=== PATIENT | male | born 1960 | race Caucasian/White ===

== ENCOUNTER 2018-07-17 09:22 | Outpatient (CLI) | payer OTHER ==
--- NOTE | 2018-07-17 14:03 | MRI ---
MRI PELVIS (PROSTATE) WITH AND WITHOUT IV CONTRAST: Date: 07/17/18 HISTORY: Prostate cancer. Biopsy 12/25/17. PSA on 06/05/18 measured 8.35 (high). TECHNIQUE: Multiplanar, multisequence MRI of the pelvis was performed using the prostate protocol with and witho ut IV contrast. Review was also performed on an independent 3D workstation. FINDINGS: The prostate measures 5.5 x 3.5 x 5.0 cm with a volume of 50 mL. No focal abnormal area of diffusion restriction is seen in the peripheral zone. No lentiform area of abnormally decreased T2 signal is seen in the transitional zone. No abnormal focal arterial enhancing mass is seen. The prostate capsule is intact. The seminal vesicl es are intact. No lymphadenopathy seen in the pelvis. The pelvic side wall is normal. There is heterogeneity in the bone marrow signal on the T1-weighted images. No definite evidence of o sseous metastatic disease is seen. IMPRESSION: PI-RADS 2: Low (clinically significant prostate cancer is unlikely to be present). This exam was interpreted in consultation with Dr. Regulo Fabian, who concurs. POS: MATT
== END 2018-07-17 09:23 | disposition home or self-care (01) ==
LOC: TBSIIMAG 09:22
PROVIDERS: ATTEND Urology
DX: C61 Malignant neoplasm of prostate (principal)
CPT/HCPCS: 72197

== ENCOUNTER 2019-03-27 09:17 | Day surgery (SDC) | payer OTHER ==
[2019-03-26 12:49] VITALS: BMI 22.9
[2019-03-27] MEDS ORDERED: EPHEDRINE 25 MG/5 ML SYRINGE ONE (09:49)
[2019-03-27] MEDS ORDERED: Rocuronium Bromide 10 MG/ML (10ML VIAL) ONE (09:49)
[2019-03-27] MEDS ORDERED: Lidocaine 1% PF 5 ML VIAL ONE (09:49)
[2019-03-27] MEDS ORDERED: Ondansetron PF 4 MG/2 ML Vial ONE ×2 (09:49→10:30)
[2019-03-27] MEDS ORDERED: PROPOFOL 200 MG/20 ML VIAL ONE (09:49)
[2019-03-27] MEDS ORDERED: PHENYLEPHRINE-NS 100 MCG/ML 10 ML SYRINGE ONE (09:49)
[2019-03-27] MEDS ORDERED: Succinylcholine Chloride 20 MG/ML 10 ml SYRINGE FS ONE (09:49)
[2019-03-27] MEDS ORDERED: AFRIN NASAL MIST 15 ML BOT ONE ×2 (09:56→11:26)
[2019-03-27] MEDS ORDERED: Scopolamine 1.5 mg/72 hour Patch ONE (10:30)
[2019-03-27] MEDS ORDERED: Famotidine/PF 20 mg/2ml Vial ONE (10:30)
[2019-03-27] MEDS ORDERED: Bacitracin Zinc Ointment 30 gm TUBE ONE (11:26)
[2019-03-27] MEDS ORDERED: EPINEPHrine 1 MG/ML AMP ONE (11:26)
[2019-03-27] MEDS ORDERED: Lidocaine 1% w/Epinephrine 1:100K 20 ML VIAL ONE ×2 (11:26→12:04)
[2019-03-27] MEDS ORDERED: Fentanyl 100 MCG/2 ML VIAL ONE ×2 (11:28→11:33)
[2019-03-27] MEDS ORDERED: methylPREDNISolone Acetate 40 mg/ml Vial ONE (11:33)
[2019-03-27] MEDS ORDERED: HYDROcodone/Acetaminophen 5/325 mg Tablet ONE (13:51)
--- NOTE | 2019-03-27 17:03 | EKG ---
Test Reason : PREOP Blood Pressure : / mmHG Vent. Rate : 054 BPM Atrial Rate : 054 BPM P-R Int : 162 ms QRS Dur : 134 ms QT Int : 476 ms P-R-T Axes : 045 034 013 degrees QTc Int : 451 ms Sinus bradycardia Right bundle branch block Abnormal ECG Confirmed by MOUSTAPHA BELTRAN ([id number]) on 03/27/2019 5:03:28 PM Referred By: MELO Confirmed By:MOUSTAPHA BELTRAN
--- NOTE | 2019-04-06 11:04 | OP ---
DATE OF PROCEDURE: 03/27/2019 PREOPERATIVE DIAGNOSES: 1. Deviated septum. 2. Bilateral nasal valve collapse. 3. Obstructive inferior turbinate hypertrophy. 4. Chronic sinusitis. 5. Pansinusitis. 6. Nasal polyposis. POSTOPERATIVE DIAGNOSES: 1. Deviated septum. 2. Bilateral nasal valve collapse. 3. Obstructive inferior turbinate hypertrophy. 4. Chronic sinusitis. 5. Pansinusitis. 6. Nasal polyposis. PROCEDURES PERFORMED: 1. Septoplasty. 2. Bilateral bone nasal endoscopy with submucosal resection of inferior turbinates. 3. Bilateral nasal endoscopy with maxillary antrostomy with removal of tissue. 4. Bilateral nasal endoscopy with frontal sinusotomy. 5. Bilateral nasal endoscopy with total ethmoidectomy. 6. Bilateral nasal endoscopy with sphenoidotomy. 7. Bilateral nasal valve repair. DESCRIPTION OF PROCEDURE: SEPTOPLASTY: After local anesthesia was infiltrated into the submucoperichondrial plane, a standard Marston incision was made with a #15 blade down to the level of the septal cartilage. The caudal elevator was used to elevate the mucoperichondrium from the underlying cartilage. We then proceeded beyond the bony cartilaginous junction and elevated the bony periosteum as well. Great attention was paid to the spur to prevent rent formation in the septal flap. A transcartilaginous incision was then made, while preserving an adequate dorsal and caudal cartilaginous strut for tip support. The deformed cartilage was removed and disarticulated from the bony cartilaginous junction and maxillary crest. This was placed in saline and would later be crushed and returned to the mucoperichondrial envelope. We then elevated the contralateral periosteum from the bony cartilaginous region and removed the deformed portions of the bone and bony spurs. The cartilage was then crushed and placed back into the mucoperichondrial envelope and the mucosa was re-approximated with a quilting stitch composed of rapidly absorbent gut suture. The Marston incision was also closed with interrupted gut suture. At the completion of the case, Henderson splints were placed and suture secured to the caudal septum. BILATERAL BONE NASAL ENDOSCOPY WITH SUBMUCOSAL RESECTION OF INFERIOR TURBINATES: After consent was obtained, the patient was identified, brought to the operating room, and placed on the operating room table in the supine position. Consent was obtained, notifying the patient of the possibility of additional infections, bleeding, brain injury, and eye/orbital injury. The patient was placed on the operating room table, and general endotracheal anesthesia and intravenous access was obtained. The patient was then positioned, prepped and draped for endoscopic sinus surgery. Nasal preparation included trimming nasal vestibular hairs and spraying in topical Afrin. We then placed Afrin topical solution on nasal pledgets and strategically located them intranasally. The perinasal mucosa was injected with 1% lidocaine with 1:100,000 epinephrine in the submucoperichondrial plane of the septum, lateral nasal wall, and anterior to the uncinate. The patient was then prepped and draped in a sterile fashion and positioned for endoscopic sinus surgery. With the 0-degree endoscope, the patient underwent systematic nasal endoscopy. There were no suspicious internasal masses or lesions identified. We then focused our attention to the osteomeatal complex region under the middle turbinate. The inferior turbinates were visualized with a 0 degree endoscope and outfractured with a Janay elevator. The inferior medial aspect was cauterized with the electrocautery. Hemostasis was obtained . After adequate airway was established, we turned our attention to the contralateral side and used a similar procedure. Again, a [employer] elevator was used to outfracture inferior turbinates under endoscopic visualization. With a suction cautery, the free inferior medial aspect was cauterized under direct visualization along the length of the inferior turbinate. At this point, we then turned our attention to the contralateral side and proceeded with endoscopic sinus surgery. At the completion of the case, Rice keel splints were placed in the ethmoid cavities after the ethmoidectomy. There were no complications. The patient tolerated the procedure well and was discharged to the recovery room in stable condition prior to return to the preoperative day stay with ultimate discharge home. Prescriptions for pain medication and antibiotics were provided. The patient received intramuscular Depo-Medrol during the case. BILATERAL NASAL ENDOSCOPY WITH MAXILLARY ANTROSTOMY WITH REMOVAL OF TISSUE: The uncinate was then identified and the extent of the uncinate was appreciated by out-fracturing the uncinate with the ball-tip probe. We then used the sickle blade to disarticulate the uncinate from the lateral nasal wall. This was then removed with straight biting and upbiting punches with the remaining shrouds of mucosa and bony septum removed with the micro-debrider. The natural os of the maxillary sinus was then identified and enlarged with the maxillary punches and back biting forceps. BILATERAL NASAL ENDOSCOPY WITH FRONTAL SINUSOTOMY: Following the ethmoidectomy, we then turned our attention to the frontal nasal recess. The agger nasi cells were addressed and the frontal recess was exposed. The natural opening to the frontal sinus was identified. At this point, any obstructing shrouds of mucosa and bony fragments were removed with a curved microdebrider. The wound was then examined and found to be free of any obstructing debris. We then turned our attention to the contralateral side and performed a similar procedure again under endoscopic visualization using a 45-degree scope. We were able to visualize the frontal recess. Obstructing shrouds of mucosa and bone were removed with a microdebrider. The natural os of frontal sinus was identified and enlarged and irrigated. At this point, the frontal sinusotomy was completed and we turned to the next area of concern. BILATERAL NASAL ENDOSCOPY WITH TOTAL ETHMOIDECTOMY: The anterior face of the ethmoid bulla was entered and with the micro-debrider, dissection continued posteriorly to the ground lamella. The limits of dissection included the insertion of the middle turbinate, medial orbital wall, and base of skull. We similarly identified the frontal recess and removed shrouds of bone and debris in that region to obtain patency into the agger nasi region and frontal recess. We then entered the ground lamella and its anteroinferior aspect and proceeded posteriorly, opening the posterior ethmoid air-cell system. Again, the limits of dissection included the base of skull and medial orbital wall. BILATERAL NASAL ENDOSCOPY WITH SPHENOIDOTOMY: The anterior face of the sphenoid was identified and entered in its extreme anteroinferior aspect. A sphenoid punch was then used to enlarge the sphenoidotomy and no injury to the optic nerve or internal carotid artery occurred. BILATERAL NASAL VALVE REPAIR: Following sinus surgery and septoplasty, we proceeded lateral valve repair. The area was prepped and draped in a sterile fashion and the nasal dorsum was infiltrated with a small amount of 1% lidocaine with 1:100,000 epinephrine. We delineated the topical anatomy with the marking device and used the skin markers to illustrate, where the graft will be placed. We then everted the nasal ala and made in the intranasal approach with implantation needle and then skived along the nasal dorsum to the medial portion of the nasal bone. We then advanced the Latera graft from the loading chamber and delivered subcutaneously along the nasal bone to reinforce nasal alar cartilage and made sure that there was no extrusion of the graft. We turned attention to the contralateral side and used identical technique again with good results. The patient was then awakened, extubated, and taken to recovery room in a stable condition prior to discharge. Job ID: [id number]
== END 2019-03-27 15:33 | disposition home or self-care (01) ==
LOC: SDC 09:17
PROVIDERS: ATTEND Specialist
PROC: 09TV8ZZ Resection of Left Ethmoid Sinus, Via Natural or Artificial Opening Endoscopic (ICD-10-PCS; principal; 2019-03-27)
PROC: 099W8ZZ Drainage of Right Sphenoid Sinus, Via Natural or Artificial Opening Endoscopic (ICD-10-PCS; principal; 2019-03-27)
PROC: 09BQ8ZZ Excision of Right Maxillary Sinus, Via Natural or Artificial Opening Endoscopic (ICD-10-PCS; principal; 2019-03-27)
PROC: 09BR8ZZ Excision of Left Maxillary Sinus, Via Natural or Artificial Opening Endoscopic (ICD-10-PCS; principal; 2019-03-27)
PROC: 099X8ZZ Drainage of Left Sphenoid Sinus, Via Natural or Artificial Opening Endoscopic (ICD-10-PCS; principal; 2019-03-27)
PROC: 09TU8ZZ Resection of Right Ethmoid Sinus, Via Natural or Artificial Opening Endoscopic (ICD-10-PCS; principal; 2019-03-27)
PROC: 09TL8ZZ Resection of Nasal Turbinate, Via Natural or Artificial Opening Endoscopic (ICD-10-PCS; principal; 2019-03-27)
PROC: 09BM0ZZ Excision of Nasal Septum, Open Approach (ICD-10-PCS; principal; 2019-03-27)
PROC: 099S8ZZ Drainage of Right Frontal Sinus, Via Natural or Artificial Opening Endoscopic (ICD-10-PCS; principal; 2019-03-27)
PROC: 09QK0ZZ Repair Nasal Mucosa and Soft Tissue, Open Approach (ICD-10-PCS; principal; 2019-03-27)
PROC: 099T8ZZ Drainage of Left Frontal Sinus, Via Natural or Artificial Opening Endoscopic (ICD-10-PCS; principal; 2019-03-27)
DX: J32.4 Chronic pansinusitis (principal); J34.2 Deviated nasal septum; J34.89 Other specified disorders of nose and nasal sinuses; J34.3 Hypertrophy of nasal turbinates; J33.9 Nasal polyp, unspecified; Z79.899 Other long term (current) drug therapy; Z88.0 Allergy status to penicillin
CPT/HCPCS: 93005; 93010; J0171; J1030; J2001; J2405; J2704; J3010; S0028

== ENCOUNTER 2021-07-22 09:04 | Outpatient (CLI) | payer BC | END 2021-07-22 09:05 | disposition home or self-care (01) | LOC: LABBT 09:04 | PROVIDERS: ATTEND Internal Medicine Gastroenterology | DX: Z80.0 Family history of malignant neoplasm of digestive organs (principal); Z20.822 Contact with and (suspected) exposure to COVID-19 | CPT/HCPCS: U0003; U0005 ==

== ENCOUNTER 2021-07-27 05:56 | Day surgery (SDC) | payer BC ==
[2021-07-22 13:36] VITALS: BMI 22.3
== END 2021-07-27 10:20 | disposition home or self-care (01) ==
LOC: SDC 05:56
PROVIDERS: ATTEND Internal Medicine Gastroenterology
PROC: 0DBN8ZX Excision of Sigmoid Colon, Via Natural or Artificial Opening Endoscopic, Diagnostic (ICD-10-PCS; principal; 2021-07-27)
DX: Z12.11 Encounter for screening for malignant neoplasm of colon (principal); D12.5 Benign neoplasm of sigmoid colon; K57.30 Diverticulosis of large intestine without perforation or abscess without bleeding; I10 Essential (primary) hypertension; Z80.0 Family history of malignant neoplasm of digestive organs; Z79.899 Other long term (current) drug therapy; Z88.0 Allergy status to penicillin
CPT/HCPCS: 88305

== ENCOUNTER 2022-05-30 13:00 | Outpatient (CLI) | payer BC | END 2022-05-30 13:01 | disposition home or self-care (01) | LOC: TBSIIMAG 13:00 | PROVIDERS: ATTEND Urology | DX: C61 Malignant neoplasm of prostate (principal) | CPT/HCPCS: 72197 ==